=== PATIENT | male | born 2000 | race African-American/Black ===

== ENCOUNTER 2023-12-26 13:29 | Emergency (ER) | payer MEDICAID, SELFPAY ==
--- NOTE | ~2023-12-26 | XR_ITS ---
EXAMINATION: XR HAND, LEFT CLINICAL INFORMATION: Pain. COMPARISON: None available. TECHNIQUE: PA, lateral, and oblique views of the left hand. FINDINGS: The bones and soft tissues are normal. No fracture. Alignment is anatomic. Joint spaces are maintained. No erosions or soft tissue calcifications. XR/XR hand LT min 3V IMPRESSION: Unremarkable examination.
[2023-12-26 13:35] VITALS: BP 125/82; PULSE 70; RESP 16; TEMP 36.3; O2SAT 98; BMI 32.1
--- NOTE | 2023-12-26 13:36 | ED_ITS ---
HPI - General Adult General Chief complaint: Neuro Symptoms/Deficit Stated complaint: l hand inj Time Seen by Provider: 12/26/23 15:40 Source: patient Mode of arrival: ambulatory Limitations: no limitations History of Present Illness HPI narrative: Patient is a 23-year-old male with no reported past medical history presenting to emergency department for evaluation of pain diffusely to the left hand intermittently, numbness to the fingertips and earlier today had subjective swelling over the dorsal aspect of the interdigital space of the thumb and 2nd digit. denies any precipitating injury. He does admit to a history of intermittent numbness and tingling to the hand upon awakening in the past but never that has lasted this long nor has he experienced pain associated with it. 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 Related Data Allergies Allergy/AdvReac Type Severity Reaction Status Date / Time No Known Allergies Allergy Verified 12/26/23 13:37 Review of Systems Review of Systems: Yes all other systems are reviewed and are negative PMFSH Past Medical History Attestation statement: The following information was validated with the patient. Source: old records reviewed Physical Exam ED Vital Signs: Vital Signs - 24 hr 12/26/23 13:35 Temperature 97.4 F Pulse Rate 70 Respiratory Rate 16 Blood Pressure 125/82 Pulse Oximetry 98 Oxygen Delivery Method Room Air BMI result Body Mass Index 32.1 Appearance: Alert.?Oriented to person, place and time. No acute distress.?Normal affect. Neck: Normal inspection.? Neck supple.?? CVS: Heart sounds normal. Normal heart rate and rhythm.? Pulses normal.?? Respiratory: No respiratory distress.? Lung sounds clear to auscultation bilaterally?? Abdomen: Soft and non-tender. Normoactive bowel sounds. Skin: Skin warm and dry.? Normal skin color.? Extremities: No lower extremity edema.? full AROM to bilateral hands and wrists. 2+ radial pulse bilaterally. Positive Tinel and Phalen sign on the left. Neuro: Moves all extremities spontaneously. Sensation intact bilaterally. Ambulates with normal steady gait. Course Course Course Narrative: RME performed by Ariana Schmidt PA-C. Patient is a 23 year old assigned male at presenting to the emergency department with left hand pain, numbness, and tingling. Patient states that he is having left hand numbness and tingling. Patient states that he has woken up in the past with both of his hands being numb because of how he sleeps but he doesn't usually have pain and it doesn't usually last this long. Patient denies any trauma. Detailed physical exam and review of systems are deferred to the line ordering clinician. Imaging ordered. Patient placed back in the waiting room pending room availability and results. Medical Decision Making Medical Decision Making MDM Narrative: Patient is a 23-year-old male with no reported past medical history presenting to emergency department for evaluation of pain diffusely to the left hand intermittently, numbness to the fingertips and earlier today had subjective swelling over the dorsal aspect of the interdigital space of the thumb and 2nd digit. XR is without acute osseous abnormality, no fracture / dislocation. Positive Phalen and Tinel sign on examination, most concerning for carpal tunnel syndrome. No neck pain or stiffness or injury to suggest cervical radiculopathy. Discussed treatment, conservative measures/NSAIDs/ neutral wrist splint and outpatient follow-up with primary care provider. Discussed worrisome signs and symptoms that would warrant re-evaluation in the emergency department. All questions answered. Stable for discharge. Differential Diagnosis Differential Diagnoses: The differential diagnosis associated with the presentation includes ( See narrative above) Independent Interpretation I performed an independent interpretation of an: Plain X-Ray ( no acute fracture dislocation) Radiology Impression Discussion of test interpretation with radiology: I have reviewed the radiologist's reading. Radiologist Impression: XR/XR hand LT min 3V IMPRESSION: Unremarkable examination. Prescription Management I considered prescription management with: Pain Medication ( NSAID) Discharge Plan Discharge Clinical Impression: Carpal tunnel syndrome Patient Disposition: Home, Self-Care Instructions: Paresthesia (ED) Additional Instructions: as discussed, your symptoms and exam today are most concerning for carpal tunnel syndrome. You can take ibuprofen 200 mg, 3 tablets (600mg) every 6-8 hours as needed for pain, in addition to Tylenol 500 mg, 2 tablets (1,000mg) every 4-6 hours as needed for pain, but not to exceed 3 doses daily (3,000mg).? Wear the splint provided primarily at night while sleeping, you may also wear it during the day if it helps to alleviate your symptoms though it may be difficult to engage in your regular activities throughout the day with your hand held in this position. Contact your primary care provider to arrange for follow-up. Referrals: Raji Solorio MD [Primary Care Provider] - Stand Alone Forms: Work/School Release Print Language: Yakut
[2023-12-26 16:15] VITALS: BP 114/75; PULSE 68; RESP 16; TEMP 36.3; O2SAT 98
== END 2023-12-26 16:16 | disposition home or self-care (01) ==
PROVIDERS: Emergency Provider Student in an Organized Health Care Education/Training Program; PCP Pediatrics
DX: G56.02 Carpal tunnel syndrome, left upper limb (principal)
CPT/HCPCS: 73130; 99283